=== PATIENT | female | born 1990 | race Hispanic/Latino ===

== ENCOUNTER → 2024-05-16 16:38 | Outpatient (REF) | payer BC, SELFPAY | LOC: RAD 16:38 | PROVIDERS: ATTENDING PHYSICIAN Obstetrics & Gynecology; FAMILY PHYSICIAN Family Medicine | DX: T83.31XA Breakdown (mechanical) of intrauterine contraceptive device, initial encounter (principal) | CPT/HCPCS: 76830; 76856 ==